=== PATIENT | female | born 1950 | race Caucasian/White ===

== ENCOUNTER 2020-04-02 13:55 | Outpatient (CLI) | payer MEDICARE, OTHER ==
--- NOTE | 2020-04-02 14:28 | BD ---
EXAM: DEXA bone density examination HISTORY: 69-year-old postmenopausal female for screening COMPARISON: 08/30/1999 FINDINGS: L1--bone mineral density 1.008 g/sq cm; T score 0.2 L2--bone mineral density 1.065 g/sq cm; T score 0.3 L3--bone mineral density 1.151 g/sq cm; T score 0.6 L4--bone mineral density 1.262 g/sq cm; T score 1.8 Total L1-L4--bone mineral density 1.131 g/sq cm; T score 0.8 Left femoral neck--bone mineral density0.719; T score -1.2 Total proximal left femur--bone mineral density 0.921; T score -0.2 IMPRESSION: Osteopenia. This patient has a 10 year WHO fracture risk of a major osteoporotic fracture of 8.5% and of a hip fracture of 0.9%.
== END 2020-04-02 13:56 | disposition home or self-care (01) ==
LOC: BICMAMMO 13:55
PROVIDERS: ATTEND Obstetrics & Gynecology
DX: Z13.820 Encounter for screening for osteoporosis (principal); Z79.890 Hormone replacement therapy; M85.852 Other specified disorders of bone density and structure, left thigh
CPT/HCPCS: 77080

== ENCOUNTER 2022-06-23 14:12 | Outpatient (CLI) | payer MEDICARE, OTHER | END 2022-06-23 14:13 | disposition home or self-care (01) | LOC: SCSRAD 14:12 | PROVIDERS: ATTEND Family Medicine | DX: M53.3 Sacrococcygeal disorders, not elsewhere classified (principal); M47.816 Spondylosis without myelopathy or radiculopathy, lumbar region; M47.817 Spondylosis without myelopathy or radiculopathy, lumbosacral region | CPT/HCPCS: 72100; 72220 ==